=== PATIENT | female | born 1990 | race Caucasian/White ===

== ENCOUNTER 2017-07-27 15:51 | Emergency (ER) | payer OTHER ==
[~2017-07-27] VITALS: Ht 160 cm; Wt 55.3 kg
[2017-07-27 15:54] VITALS: TEMP 36.7; Ht 160 cm; Wt 55.3 kg
--- NOTE | 2017-07-27 16:14 | EMERGENCY ROOM VISIT NOTE ---
ED Visit Note First contact with patient: 15:57 CHIEF COMPLAINT: Right flank pain HISTORY OF PRESENT ILLNESS: This is a 26-year-old female emergency department with complaint of gradually worsening right low back and abdominal pain that began approximately 3 weeks ago. She states the pain was initially intermittent and a dull ache, now has become constant and getting persistently worse, increased with movement and walking, better with rest, radiates around to her right lower abdomen/groin, 10/10. She states the pain got significantly worse yesterday after a long ride in the car, and seems to be aggravated by prolonged periods of sitting. She has tried 800 mg of ibuprofen with no improvement in her pain. Using heating pad with some relief. She is from out of town, visiting on vacation. She denies any known injuries to her back . The pain was gradual in onset, is now constant and worse with movement. Denies any bowel or bladder difficulties. There has been no leg numbness or weakness. No recent direct trauma. No vomiting or abdominal pain. She denies any fever/ chills, headaches, neck pain, chest pain, shortness of breath, dizziness or syncope, nausea or vomiting, diarrhea, constipation, bloody or black stools, dysuria or urinary frequency, or abnormal vaginal bleeding. She denies any rashes. REVIEW OF SYSTEMS: A complete 10 point review of systems was reviewed with the patient with pertinent positives and negatives as per history of present illness. All else were negative. PMH: Patient reports history of right ovarian cyst several years ago that required hospitalization; no abdominal surgeries. SOCIAL HISTORY: Patient lives at home. She denies tobacco use, alcohol use, recreational drug use. PHYSICAL EXAM: Vital Signs: Reviewed Nurse's notes. CONSTITUTIONAL: Pleasant and cooperative. No acute distress, but appears in pain throughout exam. Mildly dehydrated. HEENT: Normocephalic, atraumatic. Pupils equal, round and reactive to light, EOMI. TMs normal. Pharynx normal. Tacky mucous members. NECK: Supple, full active range of motion without discomfort. RESPIRATORY: Clear to auscultation bilaterally with no wheezing, crackles, rhonchi or stridor. Equal expansion bilaterally. CARDIOVASCULAR: Regular rate and rhythm with no murmurs, rubs or gallops. Normal peripheral perfusion. No edema. GASTROINTESTINAL: Moderate tenderness of the right flank and right lower quadrant, positive guarding, no rebound tenderness. The abdomen is otherwise soft, nontender, nondistended. No palpable masses or HSM. Bowel sounds present in all quadrants. No CVA tenderness. MUSCULOSKELETAL: Full range of motion of all joints without discomfort. Positive straight leg raise on the right. INTEGUMENTARY: No rash or other significant dermatologic conditions noted. NEUROLOGIC: Alert and oriented X 4 with normal affect. Cranial nerves II-XII grossly intact. No focal neurologic deficits noted. +2 Achilles and patellar reflexes bilaterally. IMAGING: CT SCAN OF THE ABDOMEN AND PELVIS WITH IV CONTRAST CLINICAL HISTORY: Right flank and lower abdominal pain. COMPARISON STUDY: No priors. TECHNIQUE: Following the IV administration of 116 cc of Optiray 320, CT scan of the abdomen and pelvis is performed from the lung bases to the proximal femora. Images are reviewed in the axial, sagittal, and coronal planes. IV contrast was administered without complication. A dose lowering technique was utilized adhering to the principles of ALARA. CT DOSE: 257.53 mGy.cm FINDINGS: Lung bases: The heart is normal in size and without pericardial effusion. The lung bases are clear. Liver: The contrast-enhanced liver is normal in size, contour, and attenuation. There is no intrahepatic biliary ductal dilatation. The hepatic veins and portal veins are patent. Gallbladder: Unremarkable. Spleen: Normal in size and attenuation. Pancreas: Unremarkable. Adrenal glands: Unremarkable. Kidneys: The contrast enhanced kidneys are normal in size. There is a 4 mm obstructing calculus at the right vesicoureteral junction seen on axial image #341. This causes mild to moderate right hydroureteronephrosis. No additional renal calculi are clearly identified on this contrast-enhanced examination. The kidneys enhance symmetrically. There is delayed excretion from the right kidney as compared to the left. Abdominal vasculature: The abdominal aorta is normal in course and caliber. Bowel: The small bowel and colon are normal in course and caliber. The appendix is well-visualized and normal. Peritoneum: There is no intraperitoneal free air or abdominal ascites. Lymphadenopathy: None. Pelvic viscera: The bladder, uterus, and adnexa are normal as visualized noting bilateral ovarian follicles. Trace free fluid is seen in the cul-de-sac. Skeletal structures: No lytic or blastic lesions are seen. IMPRESSION: 1. There is a 4 mm obstructing calculus at the right vesicoureteral junction. This causes mild to moderate right hydroureteronephrosis. 2. No additional renal calculi are clearly identified on this contrast-enhanced examination. 3. Trace free fluid in the cul-de-sac is likely within physiologic limits. EMERGENCY DEPARTMENT COURSE: I examined the patient. Differential diagnosis includes lumbar sprain/strain, lumbar radiculopathy, muscle spasm, ureteral stone, UTI, pyelonephritis, ovarian cyst/torsion, appendicitis, mesenteric adenitis, gastroenteritis, among others. Patient is diffusely tender in the right lower abdomen, flank as well as the right lower back. Positive guarding but no McBurney's point tenderness, negative Rovsing. There is no midline tenderness of the spine. There is increased pain in the right back and abdomen with right straight leg raise as well as flexion and motion of the right hip joint. Orders were placed for labs, UA and urine , IV fluids for hydration, IV morphine for pain, CT abdomen/pelvis to evaluate for intra- abdominal pathology. Patient was discussed with Dr. Blanco, who agrees with my assessment and plan. Labs are reviewed, noting hematuria, otherwise unremarkable. CT abdomen/pelvis reveals a 4 millimeter obstructing distal stone on the right that correlate with patient's complaints. Patient reassessed multiple times throughout her ED stay, she reports her pain and nausea are greatly improved after medications. She was updated on all results and plan for discharge. She was provided with prescriptions for oxycodone, naproxen, Zofran, and Flomax. She was given a dose of Flomax here in the ED. She has tolerated oral fluids without difficulty. The patient was comfortable with discharge home. She was encouraged to call her PCP in [place] to discuss a referral to urologist, and was also provided with a local urologist here. She was sent home with a urine straining. She was encouraged to follow closely with urology and was given strict return precautions should her symptoms worsen , she verbalized understanding. Patient was discharged home with her family members in stable condition and ambulatory. Current/Historical Medications Scheduled Naproxen (Naprosyn), 500 MG PO BID Ondasetron Odt (Zofran Odt), 4 MG SL Q6H Tamsulosin Hcl (Flomax), 0.4 MG PO DAILY Trazodone Hcl (Trazodone), 50 MG PO HS Scheduled PRN Ibuprofen (Advil), 200-600 MG PO Q4H PRN for Pain Oxycodone Ir (Roxicodone Ir), 1-2 TAB PO Q6H PRN for Severe Pain Allergies Coded Allergies: No Known Allergies (Unverified , 07/27/17) Vital Signs Date Time Temp Pulse Resp B/P (MAP) Pulse Ox O2 Delivery O2 Flow Rate FiO2 07/27/17 19:05 92 16 106/60 96 07/27/17 18:42 92 16 106/60 97 Room Air 07/27/17 17:37 92 16 106/62 97 Room Air 07/27/17 15:54 36.7 104 16 150/92 97 Room Air Laboratory Results 07/27/17 16:48 Red Blood Count 3.99, Mean Corpuscular Volume 92.5, Mean Corpuscular Hemoglobin 30.6, Mean Corpuscular Hemoglobin Concent 33.1, Mean Platelet Volume 11.2, Neutrophils (%) (Auto) 62.0, Lymphocytes (%) (Auto) 26.3, Monocytes (%) (Auto) 9.7, Eosinophils (%) (Auto) 1.4, Basophils (%) (Auto) 0.3, Neutrophils # (Auto) 4.92, Lymphocytes # (Auto) 2.08, Monocytes # (Auto) 0.77, Eosinophils # (Auto) 0.11, Basophils # (Auto) 0.02 07/27/17 16:48 Test 07/27/17 16:40 07/27/17 16:48 Urine Color YELLOW Urine Appearance CLEAR (CLEAR) Urine pH 7.0 (4.5-7.5) Urine Specific [place] 1.015 (1.000-1.030) Urine Protein NEG (NEG) Urine Glucose (UA) NEG (NEG) Urine Ketones NEG (NEG) Urine Occult Blood 1+ (NEG) Urine Nitrite NEG (NEG) Urine Bilirubin NEG (NEG) Urine Urobilinogen NEG (NEG) Urine Leukocyte Esterase MODERATE (NEG) Urine WBC (Auto) 1-5 /hpf (0-5) Urine RBC (Auto) 5-10 /hpf (0-4) Urine Hyaline Casts (Auto) 1-5 /lpf (0-5) Urine Epithelial Cells (Auto) >30 /lpf (0-5) Urine Bacteria (Auto) NEG (NEG) Urine Test NEG (NEG) White Blood Count 7.92 K/uL (4.8-10.8) Red Blood Count 3.99 M/uL (4.2-5.4) Hemoglobin 12.2 g/dL (12.0-16.0) Hematocrit 36.9 % (37-47) Mean Corpuscular Volume 92.5 fL (80-100) Mean Corpuscular Hemoglobin 30.6 pg (25-34) Mean Corpuscular Hemoglobin Concent 33.1 g/dl (32-36) Platelet Count 189 K/uL (130-400) Mean Platelet Volume 11.2 fL (7.4-10.4) Neutrophils (%) (Auto) 62.0 % Lymphocytes (%) (Auto) 26.3 % Monocytes (%) (Auto) 9.7 % Eosinophils (%) (Auto) 1.4 % Basophils (%) (Auto) 0.3 % Neutrophils # (Auto) 4.92 K/uL (1.4-6.5) Lymphocytes # (Auto) 2.08 K/uL (1.2-3.4) Monocytes # (Auto) 0.77 K/uL (0.11-0.59) Eosinophils # (Auto) 0.11 K/uL (0-0.5) Basophils # (Auto) 0.02 K/uL (0-0.2) RDW Standard Deviation 45.7 fL (36.4-46.3) RDW Coefficient of Variation 13.5 % (11.5-14.5) Immature Granulocyte % (Auto) 0.3 % Immature Granulocyte # (Auto) 0.02 K/uL (0.00-0.02) Anion Gap 5.0 mmol/L (3-11) Est Creatinine Clear Calc Drug Dose 112.7 ml/min Estimated GFR () 143.2 Estimated GFR (Non- 123.6 BUN/Creatinine Ratio 18.4 (10-20) Calcium Level 8.7 mg/dl (8.5-10.1) Total Bilirubin 0.2 mg/dl (0.2-1) Direct Bilirubin < 0.1 mg/dl (0-0.2) Aspartate Amino Transf (AST/SGOT) 13 U/L (15-37) Alanine Aminotransferase (ALT/SGPT) 19 U/L (12-78) Alkaline Phosphatase 70 U/L (45-117) Total Protein 7.4 gm/dl (6.4-8.2) Albumin 4.1 gm/dl (3.4-5.0) No leukocytosis, no anemia, no significant electively at abnormalities, normal renal function, normal liver enzymes, UA shows hematuria and leukocyte esterase , negative for infection, urine negative Medications Administered Medications (Trade) Dose Ordered Sig/Agustin Route Start Time Stop Time Status Last Admin Dose Admin Sodium Chloride 1,000 ml @ 999 mls/hr Q1H1M STAT IV 07/27/17 16:26 07/27/17 17:26 DC 07/27/17 16:50 999 MLS/HR Morphine Sulfate (MoRPHine SULFATE INJ) 4 mg NOW STAT IV 07/27/17 16:26 07/27/17 16:30 DC 07/27/17 16:50 4 MG Acetaminophen 100 ml @ 400 mls/hr NOW STAT IV 07/27/17 17:26 07/27/17 17:40 DC 07/27/17 17:36 400 MLS/HR Tamsulosin HCl (Flomax Cap) 0.4 mg NOW ONCE PO 07/27/17 18:15 07/27/17 18:16 DC 07/27/17 18:22 0.4 MG Ketorolac Tromethamine (Toradol Inj) 15 mg NOW STAT IV 07/27/17 18:14 07/27/17 18:16 DC 07/27/17 18:22 15 MG Departure Information Impression Primary Impression: Right distal ureteral calculus Dispostion Home / Self-Care Condition GOOD Prescriptions Ondasetron Odt (ZOFRAN ODT) 4 Mg Tab 4 MG SL Q6H for Nausea, #6 TAB Prov: Kym Thacker CRNP 07/27/17 Tamsulosin Hcl (FLOMAX) 0.4 Mg Cap 0.4 MG PO DAILY for 7 Days, #7 CAP Prov: Kym Thacker CRNP 07/27/17 Naproxen (Naprosyn) 500 Mg Tab 500 MG PO BID for 10 Days, #20 TAB Prov: Kym Thacker CRNP 07/27/17 Oxycodone Ir (Roxicodone Ir) 5 Mg Tab 1-2 TAB PO Q6H Y for Severe Pain, #20 TAB Prov: Kym Thacker CRNP 07/27/17 Referrals No Doctor, Assigned (PCP) Adalberto Vincent M.D. Patient Instructions ED Stone Renal W Colic, ED Strainer Urine, My [facility] Additional Instructions You have been treated in the Emergency Department today for a Kidney Stone ( Nephrolithiasis). You have received pain medicine in the emergency department which impairs your ability to operate a vehicle. It is illegal for you to drive after receiving these medicines. You have been prescribed naproxen 500 mg, take one tablet every 12 hours to help treat your pain. Do not take other NSAIDs while you're taking this medication. You have been prescribed oxycodone to be used for severe pain control. This is a narcotic medication. You cannot drive or consume alcohol while on this medicine. This medicine should only be used for pain that cannot be controlled with [id number] pain medicines. You have been prescribed Zofran to be used for any nausea or vomiting. Take as prescribed. You have been prescribed Flomax 0.4 mg to be taken ONCE daily. This medicine has been prescribed as it can help relax the smooth muscles of the urinary tract increasing transit time of the kidney stone. For additional pain control, you can use the following [id number] medicines (if >12 yo): - Regular strength (325mg/tab) Tylenol (acetaminophen) 2 tabs every 4-6 hours as needed. Do not exceed 10 tablets in a 24 hour period. Avoid taking more than 3000 mg day. This includes any other sources of acetaminophen you may take on a regular basis. You have been provided a strainer and specimen collection cup. You should strain your urine to collect any passed stones. Your stones can be placed into the specimen cup and taken to your Urologist for further evaluation. You have been provided the contact information for the on-call Urologist. You should contact the Urologist's office tomorrow to establish a follow-up appointment from today's Emergency Department visit. Return to the Emergency Department for severe worsening of your pain, fevers > 101.5, persistent vomiting and unable to keep down fluids, large amounts of blood in your urine, inability to urinate for greater than 8 hours, or any other concerns.
[2017-07-27] MEDS ORDERED: MoRPHine SULFATE 4 MG/ML 1 ML CARP\\VIAL IV STA (16:26)
[2017-07-27] MEDS ORDERED: SODIUM CHLORIDE 0.9% 1000ML 1,000 ML IV STA (16:26)
[2017-07-27] MEDS ORDERED: OPTIRAY 320 IV PRN (16:45)
[2017-07-27] MEDS ORDERED: IBUP-1050 PO (16:54)
[2017-07-27] MEDS ORDERED: TRAZ50TA35 PO (16:54)
[2017-07-27 16:56] LABS: BASO % 0.3 %; BASO ABS # 0.02 K/uL (0-0.2); EOS % 1.4 %; EOS ABS # 0.11 K/uL (0-0.5); HEMATOCRIT 36.9 % (37-47); HEMOGLOBIN 12.2 g/dL (12.0-16.0); IG# 0.02 K/uL (0.00-0.02); LYMPH % 26.3 %; LYMPH ABS # 2.08 K/uL (1.2-3.4); MEAN CELL VOLUME 92.5 fL (80-100); MEAN CORPUSCULAR HEMOGLOBIN 30.6 pg (25-34); MEAN CORPUSCULAR HGB CONC 33.1 g/dl (32-36); MEAN PLATELET VOLUME 11.2 fL (7.4-10.4); MONO % 9.7 %; MONO ABS # 0.77 K/uL (0.11-0.59); NEUT ABS # 4.92 K/uL (1.4-6.5); PLATELET COUNT 189 K/uL (130-400); RED CELL DISTRIBUTION WIDTH CV 13.5 % (11.5-14.5); RED CELL DISTRIBUTION WIDTH SD 45.7 fL (36.4-46.3); WHITE BLOOD COUNT 7.92 K/uL (4.8-10.8)
[2017-07-27] MEDS ORDERED: ACETAMINOPHEN IV 100 ML IV STA (17:26)
[2017-07-27 17:33] LABS: ALBUMIN 4.1 gm/dl (3.4-5.0); ALT/SGPT 19 U/L (12-78); AST/SGOT 13 U/L (15-37); BLOOD UREA NITROGEN 11 mg/dl (7-18); CALCIUM 8.7 mg/dl (8.5-10.1); CARBON DIOXIDE 27 mmol/L (21-32); CREATININE 0.62 mg/dl (0.60-1.20); GLUCOSE 103 mg/dl (70-99); POTASSIUM 3.5 mmol/L (3.5-5.1); SODIUM 138 mmol/L (136-145)
[2017-07-27 17:35] LABS: ALKALINE PHOSPHATASE 70 U/L (45-117); TOTAL PROTEIN 7.4 gm/dl (6.4-8.2)
--- NOTE | 2017-07-27 18:03 | DIAGNOSTIC IMAGING REPORT ---
CT SCAN OF THE ABDOMEN AND PELVIS WITH IV CONTRAST CLINICAL HISTORY: Right flank and lower abdominal pain. COMPARISON STUDY: No priors. TECHNIQUE: Following the IV administration of 116 cc of Optiray 320, CT scan of the abdomen and pelvis is performed from the lung bases to the proximal femora. Images are reviewed in the axial, sagittal, and coronal planes. IV contrast was administered without complication. A dose lowering technique was utilized adhering to the principles of ALARA. CT DOSE: 257.53 mGy.cm FINDINGS: Lung bases: The heart is normal in size and without pericardial effusion. The lung bases are clear. Liver: The contrast-enhanced liver is normal in size, contour, and attenuation. There is no intrahepatic biliary ductal dilatation. The hepatic veins and portal veins are patent. Gallbladder: Unremarkable. Spleen: Normal in size and attenuation. Pancreas: Unremarkable. Adrenal glands: Unremarkable. Kidneys: The contrast enhanced kidneys are normal in size. There is a 4 mm obstructing calculus at the right vesicoureteral junction seen on axial image #341. This causes mild to moderate right hydroureteronephrosis. No additional renal calculi are clearly identified on this contrast-enhanced examination. The kidneys enhance symmetrically. There is delayed excretion from the right kidney as compared to the left. Abdominal vasculature: The abdominal aorta is normal in course and caliber. Bowel: The small bowel and colon are normal in course and caliber. The appendix is well-visualized and normal. Peritoneum: There is no intraperitoneal free air or abdominal ascites. Lymphadenopathy: None. Pelvic viscera: The bladder, uterus, and adnexa are normal as visualized noting bilateral ovarian follicles. Trace free fluid is seen in the cul-de-sac. Skeletal structures: No lytic or blastic lesions are seen. IMPRESSION: 1. There is a 4 mm obstructing calculus at the right vesicoureteral junction. This causes mild to moderate right hydroureteronephrosis. 2. No additional renal calculi are clearly identified on this contrast-enhanced examination. 3. Trace free fluid in the cul-de-sac is likely within physiologic limits. Electronically signed by: Luis Alberto Brand M.D. 07/27/2017 6:02 PM Dictated Date/Time: 07/27/2017 5:56 PM
[2017-07-27] MEDS ORDERED: KETOROLAC TROMETHAMINE 30 MG/ML VIAL IV STA (18:14)
[2017-07-27] MEDS ORDERED: TAMSULOSIN HCL 0.4 MG CAP PO ONE (18:15)
[2017-07-27] MEDS ORDERED: OXYC-90 PO (18:24)
[2017-07-27] MEDS ORDERED: NAPR-22 PO (18:24)
[2017-07-27] MEDS ORDERED: TAMS0.4C38 PO (18:24)
[2017-07-27] MEDS ORDERED: ONDA4TAB10 SL (18:24)
[2017-07-27 19:05] VITALS: BP 106/60; PULSE 92; O2SAT 96
[2017-07-29] MEDS ORDERED: OXYC-90 PO (13:11)
[2017-07-30] MEDS ORDERED: MRLP17X PO (09:57)
== END 2017-07-27 19:07 | disposition home or self-care (01) ==
LOC: C.EDB 15:53 → C.EDD 19:07
DX: N20.1 Calculus of ureter (principal)

== ENCOUNTER 2017-07-28 10:34 | Observation (INO) | payer OTHER ==
[~2017-07-28] VITALS: Ht 160 cm; Wt 55.7 kg
[~2017-07-28 10:34] MED LIST: IBUP-1050 PO; NAPR-1169 PO; ONDA4TAB10 SL; OXYC1TAB3 PO; TAMS0.4C38 PO; TRAZ50TA35 PO
[2017-07-28] MEDS ORDERED: ONDANSETRON INJ 2 MG/ML 2 ML VIAL IV STA (10:49)
[2017-07-28] MEDS ORDERED: SODIUM CHLORIDE 0.9% 1000ML 1,000 ML IV STA (10:49)
--- NOTE | 2017-07-28 10:53 | EMERGENCY ROOM VISIT NOTE ---
History Report prepared by Katherine: Hina Henderson Under the Supervision of: Rodolfo CobosO. First contact with patient: 10:46 Chief Complaint: KIDNEY STONE Stated Complaint: KIDNEY STONE History of Present Illness The patient is a 26 year old female who presents to the Emergency Room with complaints of worsening lower right back pain that began one month ago. The patient states that she seen in the Emergency Department yesterday, noting she was diagnosed with a 4ml kidney stone. She notes she has been nausea, vomiting, dizziness, and has some hematuria. The patient denies any vaginal bleeding. She denies a history of kidney stones. Source of History: patient Onset: one month ago Position: back (lower) Quality: other (back pain) Timing: worsening Associated Symptoms: + nausea, + vomiting Review of Systems See HPI for pertinent positives & negatives. A total of 10 systems reviewed and were otherwise negative. Past Medical & Surgical Medical Problems: (1) Anxiety (2) Hydronephrosis due to obstruction of ureter Family History Patient reports no known family medical history. No pertinent family history. Social History Smoking Status: Never Smoker Smokeless Tobacco Use: No Alcohol Use: none Drug Use: none Marital Status: single Housing Status: lives with family Occupation Status: student Current/Historical Medications Scheduled Naproxen (Naprosyn), 500 MG PO BID Ondasetron Odt (Zofran Odt), 4 MG SL Q6H Tamsulosin Hcl (Flomax), 0.4 MG PO DAILY Trazodone Hcl (Trazodone), 50 MG PO HS Scheduled PRN Ibuprofen (Advil), 200-600 MG PO Q4H PRN for Pain Oxycodone Ir (Roxicodone Ir), 1-2 TAB PO Q6H PRN for Severe Pain Allergies Coded Allergies: No Known Allergies (Unverified , 07/28/17) Physical Exam Vital Signs Date Time Temp Pulse Resp B/P (MAP) Pulse Ox O2 Delivery O2 Flow Rate FiO2 07/28/17 12:31 104 07/28/17 12:25 37.0 92 18 119/73 98 Room Air 07/28/17 10:43 36.8 103 18 128/78 97 Room Air Physical Exam GENERAL: Patient is awake, alert, and in no acute distress. Patient is very anxious, uncomfortable, and in significant pain. EYES: The conjunctivae are clear. The pupils are round and reactive. EARS, NOSE, MOUTH AND THROAT: The nose is without any evidence of any deformity. Mucous membranes are moist tongue is midline NECK: The neck is nontender and supple. RESPIRATORY: Normal respiratory effort is noted there is no evidence of wheezing rhonchi or rales CARDIOVASCULAR: Tachycardic rate and regular rhythm noted there no murmurs rubs or gallops normal S1 normal S2 GASTROINTESTINAL: Soft with diffused tenderness to palpitations. No guarding or rigidity. Bowel sounds are present in all quadrants. Abdomen is nontender PELVIS: The Pelvis is stable. No tenderness to palpation is noted. BACK: Right CVA tenderness to percussion. No midline tenderness or or step-off noted range of motion in flexion extension as well as rotation no signs of muscle spasm noted MUSCULOSKELETAL/EXTREMITIES: There is no evidence of gross deformity full range of motion is noted in the hips and shoulders SKIN: There is no obvious evidence of any rash. There are no petechiae, pallor or cyanosis noted. NEUROLOGIC: Patient is awake alert and oriented x3 Medical Decision & Procedures Laboratory Results 07/28/17 11:00 Red Blood Count 3.97, Mean Corpuscular Volume 92.4, Mean Corpuscular Hemoglobin 30.2, Mean Corpuscular Hemoglobin Concent 32.7, Mean Platelet Volume 10.8, Neutrophils (%) (Auto) 88.5, Lymphocytes (%) (Auto) 6.2, Monocytes (%) (Auto) 4.8, Eosinophils (%) (Auto) 0.0, Basophils (%) (Auto) 0.1, Neutrophils # (Auto) 12.50, Lymphocytes # (Auto) 0.87, Monocytes # (Auto) 0.68, Eosinophils # (Auto) 0.00, Basophils # (Auto) 0.02 07/28/17 11:00 Test 07/28/17 11:00 White Blood Count 14.12 K/uL (4.8-10.8) Red Blood Count 3.97 M/uL (4.2-5.4) Hemoglobin 12.0 g/dL (12.0-16.0) Hematocrit 36.7 % (37-47) Mean Corpuscular Volume 92.4 fL (80-100) Mean Corpuscular Hemoglobin 30.2 pg (25-34) Mean Corpuscular Hemoglobin Concent 32.7 g/dl (32-36) Platelet Count 186 K/uL (130-400) Mean Platelet Volume 10.8 fL (7.4-10.4) Neutrophils (%) (Auto) 88.5 % Lymphocytes (%) (Auto) 6.2 % Monocytes (%) (Auto) 4.8 % Eosinophils (%) (Auto) 0.0 % Basophils (%) (Auto) 0.1 % Neutrophils # (Auto) 12.50 K/uL (1.4-6.5) Lymphocytes # (Auto) 0.87 K/uL (1.2-3.4) Monocytes # (Auto) 0.68 K/uL (0.11-0.59) Eosinophils # (Auto) 0.00 K/uL (0-0.5) Basophils # (Auto) 0.02 K/uL (0-0.2) RDW Standard Deviation 44.8 fL (36.4-46.3) RDW Coefficient of Variation 13.3 % (11.5-14.5) Immature Granulocyte % (Auto) 0.4 % Immature Granulocyte # (Auto) 0.05 K/uL (0.00-0.02) Urine Color YELLOW Urine Appearance CLEAR (CLEAR) Urine pH 6.5 (4.5-7.5) Urine Specific [place] 1.024 (1.000-1.030) Urine Protein NEG (NEG) Urine Glucose (UA) NEG (NEG) Urine Ketones NEG (NEG) Urine Occult Blood TRACE (NEG) Urine Nitrite NEG (NEG) Urine Bilirubin NEG (NEG) Urine Urobilinogen NEG (NEG) Urine Leukocyte Esterase SMALL (NEG) Urine WBC (Auto) 5-10 /hpf (0-5) Urine RBC (Auto) 5-10 /hpf (0-4) Urine Hyaline Casts (Auto) 1-5 /lpf (0-5) Urine Epithelial Cells (Auto) >30 /lpf (0-5) Urine Bacteria (Auto) 1+ (NEG) Urine Renal Epithelial Cells /lpf (0-5) Anion Gap 8.0 mmol/L (3-11) Est Creatinine Clear Calc Drug Dose 76.8 ml/min Estimated GFR () 100.2 Estimated GFR (Non- 86.5 BUN/Creatinine Ratio 12.6 (10-20) Calcium Level 9.2 mg/dl (8.5-10.1) Total Bilirubin 0.4 mg/dl (0.2-1) Direct Bilirubin < 0.1 mg/dl (0-0.2) Aspartate Amino Transf (AST/SGOT) 15 U/L (15-37) Alanine Aminotransferase (ALT/SGPT) 17 U/L (12-78) Alkaline Phosphatase 52 U/L (45-117) Total Protein 7.7 gm/dl (6.4-8.2) Albumin 4.4 gm/dl (3.4-5.0) Lipase 110 U/L (73-393) Human Chorionic Gonadotropin, Qual NEG (NEG) Laboratory results per my review. Medications Administered Medications (Trade) Dose Ordered Sig/Agustin Route Start Time Stop Time Status Last Admin Dose Admin Sodium Chloride 1,000 ml @ 999 mls/hr Q1H1M STAT IV 07/28/17 10:49 07/28/17 11:49 DC 07/28/17 11:01 999 MLS/HR Ondansetron HCl (Zofran Inj) 4 mg NOW STAT IV 07/28/17 10:49 07/28/17 10:52 DC 07/28/17 11:00 4 MG Morphine Sulfate (MoRPHine SULFATE INJ) 4 mg Q15M PRN IV 07/28/17 11:00 07/28/17 14:40 DC 07/28/17 12:37 4 MG ED Course 1047: The patient was evaluated in room C4. A complete history and physical examination were performed. 1049: Ordered Sodium Chloride 1000ml @ 999mls/hr IV and Zofran Inj 4mg IV. 1100: Ordered Morphine sulfate 4mg IV. 1142: I reevaluated the patient, who was resting. The patient states she is not feeling much better. I discussed test findings with her. 1256: I discussed the patient's case with JERAMIE Escalera. The patient will be evaluated for further management. Medical Decision Prior records/ancillary studies reviewed. Triage Nursing notes reviewed. Additional history obtained from previous visit. The patient's history was concerning for back pain. Differential diagnosis: Etiologies such as musculoskeletal, disc herniation, fracture, aortic disease, metastatic disease, cord compression, discitis, infection, renal colic, gastrointestinal, acute exacerbation of chronic back pain, sciatica, cauda equina, as well as others were entertained. The patient is a 26-year-old female who presented to the emergency department for evaluation of right flank pain. The patient was seen in our facility recently diagnosed with a distal ureteral calculus. Patient return to the emergency department because of severe pain. From the patient's history and physical exam I would surmise that she's been in significant pain ever since she left our department. The patient was further treated with IV fluids IV pain medicine and IV antiemetics. On subsequent reevaluation she was only minimally improved. I discussed her case with the on-call [facility] hospitalist group. They've agreed to evaluate the patient in the emergency department for further management and disposition. The patient was feeling somewhat improved on final evaluation. I'm concerned because she has no local follow-up and may need to see a urologist as an inpatient to further evaluate any other management strategies. Medication Reconcilliation Current Medication List: was personally reviewed by me Blood Pressure Screening Patient's blood pressure: Normal blood pressure Consults Time Called: 1256 Consulting Physician: JERAMIE Escalera Returned Call: 1256 I discussed the patient's case with JERAMIE Escalera. The patient will be evaluated for further management. Impression Primary Impression: Renal colic Additional Impression: Right flank pain Scribe Attestation The scribe's documentation has been prepared under my direction and personally reviewed by me in its entirety. I confirm that the note above accurately reflects all work, treatment, procedures, and medical decision making performed by me. Departure Information Dispostion Being Evaluated By Hospitalist Forms HOME CARE DOCUMENTATION FORM, IMPORTANT VISIT INFORMATION Patient Instructions My [facility] Health Problem Qualifiers
[2017-07-28] MEDS: MoRPHine SULFATE 4 MG/ML 1 ML CARP\\VIAL IV PRN ×2 (11:01→12:37)
[2017-07-28 11:07] LABS: BASO % 0.1 %; BASO ABS # 0.02 K/uL (0-0.2); HEMATOCRIT 36.7 % (37-47); IG# 0.05 K/uL (0.00-0.02); LYMPH % 6.2 %; LYMPH ABS # 0.87 K/uL (1.2-3.4); MEAN CELL VOLUME 92.4 fL (80-100); MEAN CORPUSCULAR HEMOGLOBIN 30.2 pg (25-34); MEAN CORPUSCULAR HGB CONC 32.7 g/dl (32-36); MEAN PLATELET VOLUME 10.8 fL (7.4-10.4); MONO % 4.8 %; MONO ABS # 0.68 K/uL (0.11-0.59); NEUT % 88.5 %; PLATELET COUNT 186 K/uL (130-400); RED CELL DISTRIBUTION WIDTH CV 13.3 % (11.5-14.5); RED CELL DISTRIBUTION WIDTH SD 44.8 fL (36.4-46.3); WHITE BLOOD COUNT 14.12 K/uL (4.8-10.8)
[2017-07-28 11:26] LABS: ALBUMIN 4.4 gm/dl (3.4-5.0); BLOOD UREA NITROGEN 11 mg/dl (7-18); CALCIUM 9.2 mg/dl (8.5-10.1); CARBON DIOXIDE 24 mmol/L (21-32); CREATININE 0.91 mg/dl (0.60-1.20); GLUCOSE 124 mg/dl (70-99); LIPASE 110 U/L (73-393); POTASSIUM 4.1 mmol/L (3.5-5.1); SODIUM 133 mmol/L (136-145)
[2017-07-28 11:29] LABS: ALKALINE PHOSPHATASE 52 U/L (45-117); ALT/SGPT 17 U/L (12-78); AST/SGOT 15 U/L (15-37); TOTAL PROTEIN 7.7 gm/dl (6.4-8.2)
[2017-07-28] MEDS ORDERED: POLYETHYLENE (MIRALAX) 17 GM PACK PO PRN (13:15)
[2017-07-28] MEDS ORDERED: MAGNESIUM HYDROXIDE SUSP 30 ML UDC PO PRN (13:15)
[2017-07-28] MEDS ORDERED: ALUMINUM/MAGNESIUM/SIMETH (MAALOX MAX) 30 ML UDC PO PRN (13:15)
[2017-07-28] MEDS ORDERED: ACETAMINOPHEN 325 MG TAB PO PRN (13:15)
[2017-07-28] MEDS: ONDANSETRON INJ 2 MG/ML 2 ML VIAL IV PRN (13:43)
[2017-07-28] MEDS: HYDROmorphone INJ 0.5 MG/0.5 ML SYR IV PRN ×3 (13:43→21:33)
--- NOTE | 2017-07-28 13:44 | History and Physical ---
History & Physical Date & Time of Service: Jul 28, 2017 at 13:32 Chief Complaint: Kidney Stone Primary Care Physician: No Doctor, Assigned History of Present Illness Source: patient 26 y/o F without significant medical history. Presented to the ER one day prior with R flank pain radiating into the groin. A CT pelvis revealed a 4mm calculus at the ureterovesical junction with moderate hydronephrosis. She returns due to worsening pain. The pt denies fevers or rigors. She is nauseous and had one episode of vomiting the prior evening. She has avoided PO intake today. Past Medical/Surgical History No active medical issues - has had eustachian tube surgery Family History Patient reports no known family medical history. Mother with history of multiple renal calculi that tend to pass spontaneously. Social History Visiting [place] - employed as a [employer] - does not smoke or drink Smoking Status: Never Smoker Smokeless Tobacco Use: No Drug Use: none Marital Status: single Occupational Status: student Allergies Coded Allergies: No Known Allergies (Unverified , 07/28/17) Home Medications Scheduled Naproxen (Naprosyn), 500 MG PO BID Ondasetron Odt (Zofran Odt), 4 MG SL Q6H Tamsulosin Hcl (Flomax), 0.4 MG PO DAILY Trazodone Hcl (Trazodone), 50 MG PO HS Scheduled PRN Ibuprofen (Advil), 200-600 MG PO Q4H PRN for Pain Oxycodone Ir (Roxicodone Ir), 1-2 TAB PO Q6H PRN for Severe Pain Review of Systems Constitutional: No fever, No chills, No sweats Eyes: No worsening of vision ENT: No hearing loss, No nasal symptoms Respiratory: No cough, No sputum, No wheezing Cardiovascular: No chest pain, No orthopnea, No PND Abdomen: + pain, + nausea, + vomiting Musculoskeletal: + problem reported (R flank pain), No joint pain Genitourinary - Female: No dysuria, No urinary frequency Neurologic: No memory loss, No paralysis, No weakness Psychiatric: No depression symptoms Endocrine: No fatigue Hematologic / Lymphatic: No abnormal bleeding/bruising Integumentary: No rash Physical Exam Vital Signs Date Time Temp Pulse Resp B/P (MAP) Pulse Ox O2 Delivery O2 Flow Rate FiO2 07/28/17 12:31 104 07/28/17 12:25 37.0 92 18 119/73 98 Room Air 07/28/17 10:43 36.8 103 18 128/78 97 Room Air General Appearance: WD/WN, no apparent distress Head: normocephalic ENT: normal ENT inspection, pharynx normal Neck: supple, no JVD Respiratory/Chest: chest non-tender, lungs clear, normal breath sounds Cardiovascular: regular rate, rhythm, no edema, no gallop Abdomen/GI: normal bowel sounds, soft, + pertinent finding (RLQ tenderness) Back: normal inspection, + right CVA tenderness Extremities/Musculoskelatal: normal inspection, no calf tenderness, normal capillary refill Neurologic/Psych: insurance professional II-XII nml as tested, no motor/sensory deficits, alert, oriented x 3 Skin: normal color, warm/dry Diagnostics Laboratory Results Results Past 24 Hours Test 07/28/17 11:00 Range/Units White Blood Count 14.12 4.8-10.8 K/uL Red Blood Count 3.97 4.2-5.4 M/uL Hemoglobin 12.0 12.0-16.0 g/dL Hematocrit 36.7 37-47 % Mean Corpuscular Volume 92.4 80-100 fL Mean Corpuscular Hemoglobin 30.2 25-34 pg Mean Corpuscular Hemoglobin Concent 32.7 32-36 g/dl Platelet Count 186 130-400 K/uL Mean Platelet Volume 10.8 7.4-10.4 fL Neutrophils (%) (Auto) 88.5 % Lymphocytes (%) (Auto) 6.2 % Monocytes (%) (Auto) 4.8 % Eosinophils (%) (Auto) 0.0 % Basophils (%) (Auto) 0.1 % Neutrophils # (Auto) 12.50 1.4-6.5 K/uL Lymphocytes # (Auto) 0.87 1.2-3.4 K/uL Monocytes # (Auto) 0.68 0.11-0.59 K/uL Eosinophils # (Auto) 0.00 0-0.5 K/uL Basophils # (Auto) 0.02 0-0.2 K/uL RDW Standard Deviation 44.8 36.4-46.3 fL RDW Coefficient of Variation 13.3 11.5-14.5 % Immature Granulocyte % (Auto) 0.4 % Immature Granulocyte # (Auto) 0.05 0.00-0.02 K/uL Urine Color YELLOW Urine Appearance CLEAR CLEAR Urine pH 6.5 4.5-7.5 Urine Specific [place] 1.024 1.000-1.030 Urine Protein NEG NEG Urine Glucose (UA) NEG NEG Urine Ketones NEG NEG Urine Occult Blood TRACE NEG Urine Nitrite NEG NEG Urine Bilirubin NEG NEG Urine Urobilinogen NEG NEG Urine Leukocyte Esterase SMALL NEG Urine WBC (Auto) 5-10 0-5 /hpf Urine RBC (Auto) 5-10 0-4 /hpf Urine Hyaline Casts (Auto) 1-5 0-5 /lpf Urine Epithelial Cells (Auto) >30 0-5 /lpf Urine Bacteria (Auto) 1+ NEG Urine Renal Epithelial Cells 0-5 /lpf Sodium Level 133 136-145 mmol/L Potassium Level 4.1 3.5-5.1 mmol/L Chloride Level 100 98-107 mmol/L Carbon Dioxide Level 24 21-32 mmol/L Anion Gap 8.0 3-11 mmol/L Blood Urea Nitrogen 11 7-18 mg/dl Creatinine 0.91 0.60-1.20 mg/dl Est Creatinine Clear Calc Drug Dose 76.8 ml/min Estimated GFR () 100.2 Estimated GFR (Non- 86.5 BUN/Creatinine Ratio 12.6 10-20 Random Glucose 124 70-99 mg/dl Calcium Level 9.2 8.5-10.1 mg/dl Total Bilirubin 0.4 0.2-1 mg/dl Direct Bilirubin < 0.1 0-0.2 mg/dl Aspartate Amino Transf (AST/SGOT) 15 15-37 U/L Alanine Aminotransferase (ALT/SGPT) 17 12-78 U/L Alkaline Phosphatase 52 45-117 U/L Total Protein 7.7 6.4-8.2 gm/dl Albumin 4.4 3.4-5.0 gm/dl Lipase 110 73-393 U/L Human Chorionic Gonadotropin, Qual NEG NEG Diagnostic Radiology CT pelvis 07/27: 1. There is a 4 mm obstructing calculus at the right vesicoureteral junction. This causes mild to moderate right hydroureteronephrosis. 2. No additional renal calculi are clearly identified on this contrast-enhanced examination. 3. Trace free fluid in the cul-de-sac is likely within physiologic limits. Impression Assessment and Plan 26 y/o F without significant medical history. Presented to the ER one day prior with R flank pain radiating into the groin. A CT pelvis revealed a 4mm calculus at the ureterovesical junction with moderate hydronephrosis. She returns due to worsening pain. The pt denies fevers or rigors. She is nauseous and had one episode of vomiting the prior evening. She has avoided PO intake today. The pt will be evaluated by urology. She is placed on IVF, Flomax, antiemetics and as needed narcotics. We will keep her NPO after midnight as she may need intervention if there is no spontaneous passage. Full code - SCDs Total time for this admit including review of labs, meds, imaging - discussion with pt and ER attending - 31 min Resuscitation Status FULL RESUSCITATION VTE Prophylaxis VTE Risk Assessment Done? Y/N: Yes Risk Level: Very Low Given or contraindicated: SCD's
--- NOTE | 2017-07-28 13:45 | DIAGNOSTIC IMAGING REPORT ---
KUB CLINICAL HISTORY: Ureteral stone. COMPARISON STUDY: CT of the abdomen and pelvis July 27, 2017. FINDINGS: A 2.4 mm distal right ureteral calculus is unchanged in position since CT of July 27, 2017. There is persistent contrast within a mildly dilated right collecting system. No additional urinary calculi are present. A moderate amount stool within the colon is noted without evidence for a bowel obstruction. IMPRESSION: 1. No change in position of a 2.4 mm distal right ureteral calculus since CT of July 27, 2017. 2. Mild right hydronephrosis. Electronically signed by: Jose Angel Celis M.D. 07/28/2017 1:43 PM Dictated Date/Time: 07/28/2017 1:39 PM
[2017-07-28] MEDS ORDERED: IV FLUIDS COMPLETED PRN (14:15)
[2017-07-28 14:26] VITALS: BP 125/70; PULSE 106; TEMP 36.9; O2SAT 100
[2017-07-28 14:27] VITALS: BP 125/70; PULSE 92; TEMP 36.9; O2SAT 100; Ht 160 cm; Wt 55.7 kg
[2017-07-28] MEDS: D5W AND NSS 1,000 ML IV SCH ×2 (15:01→23:42)
[2017-07-28 15:19] VITALS: BP 103/52; PULSE 85; TEMP 36.9; O2SAT 96
--- NOTE | 2017-07-28 16:20 | Urology Consultation ---
History General Date of Service: Jul 28, 2017. Chief Complaint: Intractable colic. Primary Care Physician: No Doctor, Assigned Pt seen a urologist before?: Yes If yes, why?: Childhood UTIs History of Present Illness 26 yo female here for acute onset of intractable RLQ pain, nausea, emesis and irritative symptoms. She presented to the ER yesterday and returned today due to a lack of symptomatic relief. Her notes and imaging studies are reviewed - this shows a distal R ureteral stone, 3-4 mm with mild to mod hydro. KUB today redemonstrates her R distal stone - likely some retained contrast in her R kidney is also notes. She notes her pain persists, more controlled on parenteral medication. She is here locally on vacation - her family is sleeping in the hotel after having been up all night with her, not available by phone today. This is her first stone episode, although she underwent an unspecified evaluation as a child for a history of recurrent UTIs. She has passed no stone material since admission. consultation is requested to assist with her care. Imaging Imaging: CT Laboratory Last 24 Hours Test 07/28/17 11:00 White Blood Count 14.12 K/uL Red Blood Count 3.97 M/uL Hemoglobin 12.0 g/dL Hematocrit 36.7 % Mean Corpuscular Volume 92.4 fL Mean Corpuscular Hemoglobin 30.2 pg Mean Corpuscular Hemoglobin Concent 32.7 g/dl Platelet Count 186 K/uL Mean Platelet Volume 10.8 fL Neutrophils (%) (Auto) 88.5 % Lymphocytes (%) (Auto) 6.2 % Monocytes (%) (Auto) 4.8 % Eosinophils (%) (Auto) 0.0 % Basophils (%) (Auto) 0.1 % Neutrophils # (Auto) 12.50 K/uL Lymphocytes # (Auto) 0.87 K/uL Monocytes # (Auto) 0.68 K/uL Eosinophils # (Auto) 0.00 K/uL Basophils # (Auto) 0.02 K/uL RDW Standard Deviation 44.8 fL RDW Coefficient of Variation 13.3 % Immature Granulocyte % (Auto) 0.4 % Immature Granulocyte # (Auto) 0.05 K/uL Urine Color YELLOW Urine Appearance CLEAR Urine pH 6.5 Urine Specific [place] 1.024 Urine Protein NEG Urine Glucose (UA) NEG Urine Ketones NEG Urine Occult Blood TRACE Urine Nitrite NEG Urine Bilirubin NEG Urine Urobilinogen NEG Urine Leukocyte Esterase SMALL Urine WBC (Auto) 5-10 /hpf Urine RBC (Auto) 5-10 /hpf Urine Hyaline Casts (Auto) 1-5 /lpf Urine Epithelial Cells (Auto) >30 /lpf Urine Bacteria (Auto) 1+ Urine Renal Epithelial Cells /lpf Sodium Level 133 mmol/L Potassium Level 4.1 mmol/L Chloride Level 100 mmol/L Carbon Dioxide Level 24 mmol/L Anion Gap 8.0 mmol/L Blood Urea Nitrogen 11 mg/dl Creatinine 0.91 mg/dl Est Creatinine Clear Calc Drug Dose 76.8 ml/min Estimated GFR () 100.2 Estimated GFR (Non- 86.5 BUN/Creatinine Ratio 12.6 Random Glucose 124 mg/dl Calcium Level 9.2 mg/dl Total Bilirubin 0.4 mg/dl Direct Bilirubin < 0.1 mg/dl Aspartate Amino Transf (AST/SGOT) 15 U/L Alanine Aminotransferase (ALT/SGPT) 17 U/L Alkaline Phosphatase 52 U/L Total Protein 7.7 gm/dl Albumin 4.4 gm/dl Lipase 110 U/L Human Chorionic Gonadotropin, Qual NEG Problem List Medical Problems: (1) Renal colic Status: Acute (2) Right distal ureteral calculus Status: Acute Past History kidney stones, urinary tract infection Past Surgical History: other (ear surgery) Family History Patient reports no known family medical history. Stones with mother and aunt, the majority passed. Social History Lives in [facility] on family vacation. Smoking: non-smoker Alcohol: no current use Marital status: single Occupation status: student Allergies Coded Allergies: No Known Allergies (Unverified , 07/28/17) Medications Home Medications: Home Meds and Scripts Medications Dose Route/Sig Max Daily Dose Days Date Category Zofran Odt (Ondansetron HCl) 4 Mg Tab 4 Mg SL Q6H 07/27/17 Rx Flomax (Tamsulosin Hcl) 0.4 Mg Cap 0.4 Mg PO DAILY 7 07/27/17 Rx Naprosyn (Naproxen) 500 Mg Tab 500 Mg PO BID 10 07/27/17 Rx Roxicodone Ir (Oxycodone HCl) 5 Mg Tab 1-2 Tab PO Q6H PRN 07/27/17 Rx Advil (Ibuprofen) 200 Mg Tab 200-600 Mg PO Q4H PRN 07/27/17 Reported Trazodone (Trazodone HCl) 50 Mg Tab 50 Mg PO HS 07/27/17 Reported Inpatient Medications: Current Inpatient Medications Medications (Trade) Dose Ordered Sig/Agustin Route Start Time Stop Time Status Last Admin Dose Admin Tamsulosin HCl (Flomax Cap) 0.4 mg DAILY PO 07/29/17 09:00 08/28/17 08:59 Trazodone HCl (Desyrel Tab) 50 mg HS PO 07/28/17 21:00 08/27/17 20:59 Dextrose/Sodium Chloride 1,000 ml @ 100 mls/hr Q10H IV 07/28/17 15:00 07/29/17 10:59 07/28/17 15:01 100 MLS/HR Acetaminophen (Tylenol Tab) 650 mg Q4H PRN PO 07/28/17 13:15 08/27/17 13:14 Al Hydrox/Mg Hydrox/Simethicone (Maalox Max Susp) 15 ml Q4H PRN PO 07/28/17 13:15 08/27/17 13:14 Magnesium Hydroxide (Milk Of Magnesia Susp) 30 ml Q6H PRN PO 07/28/17 13:15 08/27/17 13:14 Polyethylene (Miralax Powder Packet) 17 gm DAILY PRN PO 07/28/17 13:15 08/27/17 13:14 Ondansetron HCl (Zofran Inj) 4 mg Q6H PRN IV 07/28/17 13:15 08/27/17 13:14 07/28/17 13:43 4 MG Hydromorphone HCl (Dilaudid Inj) 0.5 mg Q3H PRN IV 07/28/17 13:15 08/11/17 13:14 07/28/17 13:43 0.5 MG Miscellaneous (Iv Fluids Completed) 1 ea PRN PRN N/A 07/28/17 14:15 07/28/18 14:14 Review of Systems Review of Systems Constitutional: No fever, No chills Eyes: No blurred vision, No double vision, No eye pain Neurological: No dizzy, No seizures Endocrine: + tired/sluggish Gastrointestinal: + abdominal pain, + nausea, + vomiting Cardiovascular: No angina, No irregular heartbeat Respiratory: No wheezing, No coughing up blood Skin: No boils, No dry skin Musculoskeletal: + back pain Blood / Lymphatic: No bruise easily, No swollen glands Ears / Nose / Throat: No hearing loss, No sinus Psychologic / Mental: No trouble remembering, No difficulty sleeping Female : + see HPI, + kidney stones Physical Exam Vital Signs: Vital Signs Past 12 Hours Date Time Temp Pulse Resp B/P (MAP) Pulse Ox O2 Delivery O2 Flow Rate FiO2 07/28/17 15:19 36.9 85 16 103/52 (69) 96 Room Air 07/28/17 14:27 36.9 92 18 125/70 100 Room Air 07/28/17 14:26 36.9 106 16 125/70 (88) 100 Room Air 07/28/17 13:46 86 18 105/65 98 Room Air 07/28/17 12:31 104 07/28/17 12:25 37.0 92 18 119/73 98 Room Air 07/28/17 10:43 36.8 103 18 128/78 97 Room Air Physical Exam: General Appearance: WD/WN, + mild distress ENT: normal ENT inspection Neck: supple, no adenopathy Respiratory/Chest: no respiratory distress, no accessory muscle use Cardiovascular: no JVD Extremities: non-tender Neurologic/Psychiatric: alert, oriented x 3 Skin: normal color Lymphatic: no adenopathy Assessment & Plan Assessment & Plan A/P 26 yo female with R distal 4 mm stone, intractable colic. Findings reviewed. With her stone location and size it is not unlikely to pass. Part of her difficulties result from the logistics of her distance from home. She is offered intervention today vs. a trial of passage. She would likely to try to pass the stone for now. Will provide dinner, NPO after midnight, KUB in AM. Consider intervention tomorrow if she remains in distress. Otherwise, if pain controlled, could consider DC on oral pain meds and antiemetics with follow -up closer to home. Thank you for allowing us to participate in this patient's care, will follow with you.
[2017-07-28] MEDS ORDERED: OXYCODONE/ACETAMINOPHEN 5-325 TAB PO PRN (16:30)
[2017-07-28] MEDS: OXYCODONE/ACETAMINOPHEN 5-325 TAB PO PRN ×2 (18:10→22:57)
[2017-07-28] MEDS: TRAZODONE HCL 50 MG TAB PO SCH (20:56)
[2017-07-28] MEDS: DOCUSATE SODIUM 100 MG CAP PO SCH (20:56)
[2017-07-28 23:14] VITALS: BP 104/63; PULSE 74; TEMP 36.7; O2SAT 96
[2017-07-29] VITALS (7 sets, daily range): BP systolic 86–106; BP diastolic 44–64; PULSE 54–83; TEMP 36.7–36.9; O2SAT 95–97
[2017-07-29] MEDS ORDERED: CIPROFLOXACIN / D5W 400 MG IV SCH (06:00)
[2017-07-29 07:34] LABS: HEMATOCRIT 31.3 % (37-47); HEMOGLOBIN 10.1 g/dL (12.0-16.0); MEAN CELL VOLUME 93.7 fL (80-100); MEAN CORPUSCULAR HEMOGLOBIN 30.2 pg (25-34); MEAN CORPUSCULAR HGB CONC 32.3 g/dl (32-36); MEAN PLATELET VOLUME 10.5 fL (7.4-10.4); PLATELET COUNT 129 K/uL (130-400); RED CELL DISTRIBUTION WIDTH CV 13.6 % (11.5-14.5); RED CELL DISTRIBUTION WIDTH SD 46.5 fL (36.4-46.3); WHITE BLOOD COUNT 7.73 K/uL (4.8-10.8)
[2017-07-29 08:09] LABS: CALCIUM 7.9 mg/dl (8.5-10.1); CREATININE 0.64 mg/dl (0.60-1.20); POTASSIUM 3.6 mmol/L (3.5-5.1)
[2017-07-29] MEDS: DOCUSATE SODIUM 100 MG CAP PO SCH ×2 (09:00→20:37)
--- NOTE | 2017-07-29 09:02 | DIAGNOSTIC IMAGING REPORT ---
KUB CLINICAL HISTORY: 26 years-old Female presenting with R ureteral stone. TECHNIQUE: Single supine view of the abdomen was obtained. COMPARISON: CT from 07/27/2017 and plain radiograph from 07/28/2017. FINDINGS: Nonobstructive bowel gas pattern. Moderate stool burden throughout the colon. No gross pneumoperitoneum. Allowing for bowel gas and stool, unchanged position of the distal right ureteral calculus. No radiographically apparent renal calculi. Osseous structures normal. IMPRESSION: 1. Allowing for moderate stool burden, no change in position of the distal right ureteral calculus. Electronically signed by: Derrell Best M.D. 07/29/2017 9:00 AM Dictated Date/Time: 07/29/2017 8:59 AM
[2017-07-29] MEDS: ONDANSETRON INJ 2 MG/ML 2 ML VIAL IV PRN (09:16)
[2017-07-29] MEDS: TAMSULOSIN HCL 0.4 MG CAP PO SCH (09:50)
[2017-07-29] MEDS ORDERED: KETOROLAC TROMETHAMINE 15 MG/ML VIAL IV PRN (11:15)
[2017-07-29] MEDS: SODIUM CHLORIDE 0.9% 1000ML 1,000 ML IV SCH ×3 (11:36→21:29)
--- NOTE | 2017-07-29 12:31 | Progress Note ---
Subjective Date of Service: Jul 29, 2017. Subjective Pt evaluation today including: conversation w/ patient, conversation w/ family , physical exam, chart review, lab review, review of inpatient medication list Pain: Improved since last night PO Intake: NPO per orders Voiding: no voiding problems 26 yo female with a R distal ureteral stone and colic, NPO per orders. She notes she tolerated dinner last night and after worsening pain her colic has improved somewhat this AM. However her KUB this AM suggests unmoved stone and she has passed no stone material. Her aunt and mother, both stone formers, are present today. She has required no recent pain meds. Past notes and imaging reviewed. Problem List Medical Problems: (1) Renal colic Status: Acute (2) Right distal ureteral calculus Status: Acute Review of Systems Constitutional: No fever, No chills Eyes: No worsening of vision ENT: No hearing loss Respiratory: No sputum, No wheezing Cardiac: No chest pain Abdomen: + pain, No nausea, No vomiting Female : + see HPI Neurologic: No memory loss, No paralysis Psychiatric: No depression symptoms Endo: No excessive urination Skin: No new/changing skin lesions Objective Vital Signs Date Time Temp Pulse Resp B/P (MAP) Pulse Ox O2 Delivery O2 Flow Rate FiO2 07/29/17 07:45 Room Air 07/29/17 07:08 36.7 77 17 102/64 (77) 97 Room Air 07/28/17 23:45 Room Air 07/28/17 23:14 36.7 74 14 104/63 (77) 96 Room Air 07/28/17 15:22 Room Air 07/28/17 15:19 36.9 85 16 103/52 (69) 96 Room Air 07/28/17 14:27 36.9 92 18 125/70 100 Room Air 07/28/17 14:26 36.9 106 16 125/70 (88) 100 Room Air 07/28/17 13:46 86 18 105/65 98 Room Air 07/28/17 12:31 104 Physical Exam General Appearance: WD/WN, no apparent distress Eyes: normal inspection ENT: normal ENT inspection, hearing grossly normal Neck: supple, no adenopathy Respiratory/Chest: no respiratory distress, no accessory muscle use Cardiovascular: no JVD Abdomen: non tender, soft Extremities: non-tender Neurologic/Psychiatric: alert, oriented x 3 Skin: normal color Laboratory Results Last 24 Hours Test 07/29/17 07:19 White Blood Count 7.73 K/uL Red Blood Count 3.34 M/uL Hemoglobin 10.1 g/dL Hematocrit 31.3 % Mean Corpuscular Volume 93.7 fL Mean Corpuscular Hemoglobin 30.2 pg Mean Corpuscular Hemoglobin Concent 32.3 g/dl RDW Standard Deviation 46.5 fL RDW Coefficient of Variation 13.6 % Platelet Count 129 K/uL Mean Platelet Volume 10.5 fL Sodium Level 140 mmol/L Potassium Level 3.6 mmol/L Chloride Level 110 mmol/L Carbon Dioxide Level 26 mmol/L Anion Gap 4.0 mmol/L Blood Urea Nitrogen 9 mg/dl Creatinine 0.64 mg/dl Est Creatinine Clear Calc Drug Dose 109.2 ml/min Estimated GFR () 141.7 Estimated GFR (Non- 122.3 BUN/Creatinine Ratio 14.8 Random Glucose 94 mg/dl Calcium Level 7.9 mg/dl Magnesium Level 2.0 mg/dl Assessment and Plan A/P 26 yo female with improved colic, R distal ureteral stone. Findings reviewed with patient and family. It is unclear if her stone has indeed passed - KUB suggests it hasn't, but there is some stool present. Seen her symptomatic improvement she is offered discharge with a trial of MET. If her stone persists she could be treated closer to home and of course if intractable colic resumes she could return to the ER and be treated here. The alternative is to proceed to the OR as planned for ureteroscopy and removal of her stone, laser litho and stent if it persists, which is not unlikely. After some consideration patient reports she would prefer to proceed to the OR due to anxiety over the possibility of return of colic. Consent obtained, risks and benefits reviewed. Will leave string on stent so she can remove it herself in 5 days if she cannot find a urologist in that time frame. Patient and family vocalize understanding of the treatment plan.
[2017-07-29] MEDS ORDERED: HYDROmorphone INJ 1 MG/ML SYR IV PRN (12:45)
[2017-07-29] MEDS ORDERED: ONDANSETRON INJ 2 MG/ML 2 ML VIAL IV PRN (12:45)
[2017-07-29] MEDS ORDERED: EpHEDrine SULFATE INJ 50 MG/ML AMP IV PRN (12:45)
[2017-07-29] MEDS ORDERED: ATROPINE SULFATE 0.1 MG/ML 5ML SYR IV PRN (12:45)
--- NOTE | 2017-07-29 13:02 | Progress Note ---
Subjective Date of Service: Jul 29, 2017. Subjective pt has improvement of symptoms, but KUB suggests stone is still present, pt wants this to be over with and has agreed to go to OR Problem List Medical Problems: (1) Renal colic Status: Acute (2) Right distal ureteral calculus Status: Acute Review of Systems Respiratory: No cough, No shortness of breath Cardiac: No chest pain, No edema Abdomen: No pain, No nausea, No vomiting, No diarrhea Musculoskeletal: No joint pain, No muscle pain Objective Vital Signs Date Time Temp Pulse Resp B/P (MAP) Pulse Ox O2 Delivery O2 Flow Rate FiO2 07/29/17 07:45 Room Air 07/29/17 07:08 36.7 77 17 102/64 (77) 97 Room Air 07/28/17 23:45 Room Air 07/28/17 23:14 36.7 74 14 104/63 (77) 96 Room Air 07/28/17 15:22 Room Air 07/28/17 15:19 36.9 85 16 103/52 (69) 96 Room Air 07/28/17 14:27 36.9 92 18 125/70 100 Room Air 07/28/17 14:26 36.9 106 16 125/70 (88) 100 Room Air 07/28/17 13:46 86 18 105/65 98 Room Air Physical Exam General Appearance: WD/WN, no apparent distress Respiratory/Chest: chest non-tender, lungs clear, normal breath sounds Cardiovascular: regular rate, rhythm, no murmur Abdomen: normal bowel sounds, non tender, soft Extremities: no pedal edema, no calf tenderness Laboratory Results Last 24 Hours Test 07/29/17 07:19 White Blood Count 7.73 K/uL Red Blood Count 3.34 M/uL Hemoglobin 10.1 g/dL Hematocrit 31.3 % Mean Corpuscular Volume 93.7 fL Mean Corpuscular Hemoglobin 30.2 pg Mean Corpuscular Hemoglobin Concent 32.3 g/dl RDW Standard Deviation 46.5 fL RDW Coefficient of Variation 13.6 % Platelet Count 129 K/uL Mean Platelet Volume 10.5 fL Sodium Level 140 mmol/L Potassium Level 3.6 mmol/L Chloride Level 110 mmol/L Carbon Dioxide Level 26 mmol/L Anion Gap 4.0 mmol/L Blood Urea Nitrogen 9 mg/dl Creatinine 0.64 mg/dl Est Creatinine Clear Calc Drug Dose 109.2 ml/min Estimated GFR () 141.7 Estimated GFR (Non- 122.3 BUN/Creatinine Ratio 14.8 Random Glucose 94 mg/dl Calcium Level 7.9 mg/dl Magnesium Level 2.0 mg/dl Assessment and Plan 26 y/o F without significant medical history with renal colic and stone suggestes at the ureterovesical junction with moderate hydronephrosis. no production of stone after hydration and pain control will go to the OR 07/29 IVF, Flomax, antiemetics and parenteral pain contol
[2017-07-29] MEDS ORDERED: OXYC1TAB3 PO (13:11)
[2017-07-29] MEDS ORDERED: ONDA4TAB10 SL (13:11)
--- NOTE | 2017-07-29 13:12 | Discharge Instructions ---
Discharge Instructions Date of Service Jul 29, 2017. Admission Reason for Admission: Hydronephrosis Due To Obstruction Of Ureter Discharge Discharge Diagnosis / Problem: renal colic, s/p cystoscopy and stent Discharge Goals Goal(s): Diagnostic testing, Therapeutic intervention Activity Recommendations Activity Limitations: as noted below Lifting Limitations: no more than 25 pounds, gradually increase as tolerated Exercise/Sports Limitations: rest today, gradually increase as tolerated May Resume Sexual Activity: when tolerated (after stent removal) Shower/Bathe: no limitations Driving or Machine Use: resume 1 day after discharge . Instructions / Follow-Up Instructions / Follow-Up Contact a urologist at home in [facility] for follow-up of stone disease. OK to remove stent in 5-7 days if not able to be seen by urologist in the meanwhile - untape string and pull until entire stent comes out. If stent becomes dislodged, simply remove. Call [phone] for forwarding records or with any questions in the postoperative period. Blood in urine and urinary pressure and frequency expected - use Pyridium as needed for these symptoms. Current Hospital Diet Patient's current hospital diet: Regular Diet Discharge Diet Recommended Diet: Regular Diet (good fluid intake) Procedures Procedures Performed: Cystoscopy, right ureteroscopy with stone extraction, placement of stent with string. Pending Studies Studies pending at discharge: yes List of pending studies: urine culture, stone analysis Medical Emergencies . Who to Call and When: Medical Emergencies: If at any time you feel your situation is an emergency, please call 911 immediately. . Non-Emergent Contact Non-Emergency issues call your: Primary Care Provider, Urologist Call Non-Emergent contact if: temperature is above 101, your pain is not controlled, your pain is worsening, your pain is unusual for you, you have any medication questions . . "Provider Documentation" section prepared by Patricio Schafer MD - 1. Avoid excessive amounts of caffeinated beverages (dark sodas, coffee, tea) as this can contribute to stone formation. 2. Drink plenty of fluids (water, gatorade, lemonade) daily to keep hydration optimal and avoid stone formation. 3. Return to [facility] or any other hospital if - * you develop fever over 100.5 degrees * your pain is not controlled * you have vomiting or diarrhea * any other concerns 4. For prevention/treatment of constipation - take [id number] miralax once-twice daily. . VTE Core Measure Inpt VTE Proph given/why not?: SCD's
[2017-07-29] MEDS ORDERED: MIDAZOLAM HCL 1 MG/ML 2ML VIAL ONE (13:22)
[2017-07-29] MEDS ORDERED: FENTANYL CITRATE INJ 50 MCG/1 ML 2 ML VIAL ONE ×2 (13:22→15:07)
[2017-07-29] MEDS ORDERED: SCOPOLAMINE 1.5 MG TDSY TD ONE (14:02)
[2017-07-29] MEDS ORDERED: PHEN-775 PO (14:12)
[2017-07-29] MEDS ORDERED: CIPR-255 PO (14:12)
[2017-07-29] MEDS ORDERED: CONRAY 30% 150ML BOTTLE ONE (14:31)
[2017-07-29] MEDS ORDERED: LIDOCAINE HCL 2% 2 ML VIAL (20MG/ML) ONE (14:33)
[2017-07-29] MEDS ORDERED: PROPOFOL IV EMULSION 10 MG/ML 20 ML VIAL IV ONE (14:33)
[2017-07-29] MEDS ORDERED: DEXAMETHASONE SOD INJ 4 MG/ML VIAL ONE (14:33)
[2017-07-29] MEDS ORDERED: ONDANSETRON INJ 2 MG/ML 2 ML VIAL ONE (14:33)
[2017-07-29] MEDS ORDERED: PHENYLEPHRINE 100MCG/ML 5ML SYR ONE (14:47)
--- NOTE | 2017-07-29 14:58 | DIAGNOSTIC IMAGING REPORT ---
RETROGRADE INCLUDES KUB CLINICAL HISTORY: 26 years-old Female presenting with STENT PLACEMENT. TECHNIQUE: 6 fluoroscopic spot image(s) obtained as part of an intraoperative procedure. COMPARISON: Plain radiographs from 07/29/2017. FINDINGS/IMPRESSION: Interval cystoscopy with opacification of the right ureter. Subsequently a guidewire was passed into the ureter and a right ureteral stent placed. Please see surgical report for further details. Fluoroscopy dosage (mGy): 4.91. Fluoroscopy time: 50 seconds. Number of fluoroscopic spot images: 6. Electronically signed by: Derrell Best M.D. 07/29/2017 2:57 PM Dictated Date/Time: 07/29/2017 2:56 PM
--- NOTE | 2017-07-29 15:04 | [facility] Post Operative Brief Note ---
Immediate Operative Summary Operative Date Jul 29, 2017. Pre-Operative Diagnosis Right distal ureteral stone with intractable colic Post-Operative Diagnosis same as preop Procedure(s) Performed Cystoscopy, right retrograde pyelography, right semirigid ureteroscopy with basket stone extraction, placement of stent with string. Surgeon Dr. Bassem Woods Printmaker Surgeon(s) none Estimated Blood Loss 5 ml Findings Small stone impacted with edematous ureter removed with basket, good position of stent with string, no ureteral injury. Specimens A: Right distal ureteral stone for analysis Drains 6 fr 24 loop stent with string Anesthesia GALMA Complication(s) None Disposition Recovery Room / PACU
[2017-07-29] MEDS: FENTANYL CITRATE INJ 50 MCG/1 ML 2 ML VIAL IV PRN ×3 (15:12→15:35)
[2017-07-29] MEDS ORDERED: PHENAZOPYRIDINE HCL 200 MG TAB PO PRN (15:15)
--- NOTE | 2017-07-29 15:31 | OPERATIVE REPORT ---
DATE OF OPERATION: 07/29/2017 PREOPERATIVE DIAGNOSIS: Right distal ureteral stone with intractable renal colic. POSTOPERATIVE DIAGNOSIS: Same. PROCEDURES: Cystoscopy, right retrograde pyelography, right semirigid ureteroscopy with basket stone extraction and ureteral stent placement. SURGEON: Dr. Bassem Woods. TAG MACHINE OPERATOR: None. ANESTHESIA: General anesthesia with laryngeal mask. COMPLICATIONS: None. ESTIMATED BLOOD LOSS: Minimal. FINDINGS: Small stone impacted with an edematous right distal ureter removed with basket, good position of stent with string in place, no ureteral injury appreciated. SPECIMENS SENT TO PATHOLOGY: Right distal ureteral stone for chemical analysis. DRAINS LEFT IN PLACE: Include a 6-[place] 24 loop stent with a string in the right hand side. COMPLICATIONS: None. BRIEF HISTORY: Ms. Walker is a pleasant 26-year-old female who I have seen acutely on the occasion of a somewhat ruined family vacation due to acute onset of right renal colic from a small right distal ureteral stone. She was seen in consultation yesterday with attempted stone passage overnight. Unfortunately, this was not successful with a stone remaining within the ureter on KUB today. The patient's mother and aunt both are whom also stone formers present in her room today. After discussion of risks and benefits of various forms of intervention, especially considering the logistics of her travel back to [facility] where she resides, she has decided upon acute endoscopic intervention with ureteroscopy and stone extraction as well as ureteral stent. Please see urology consultation and progress notes for further details. Intravenous ciprofloxacin is provided for antibiotic coverage and SCDs are used for DVT prophylaxis. DESCRIPTION OF PROCEDURE: The patient was properly identified and brought into the operative suite after identification of appropriate consent on the chart, general anesthesia with laryngeal mask was initiated and the patient was prepped and draped in standard fashion for this procedure. integration software developer-out procedure was followed. A 22-[place] rigid cystoscope was passed into the bladder under direct visualization and bladder was surveyed in its entirety demonstrating no intravesical lesions, papillary masses, or calculi. Right-sided ureteral orifice was noted to be somewhat edematous with the left side effluxing clear, yellow urine. Both ureteral orifices were in the normal anatomic position. Right-sided orifice was cannulated with an open-ended catheter and gentle retrograde pyelography was performed using Conray. This demonstrated a small filling defect within the distal ureter with mild to moderate ureteral fullness and hydronephrosis above this level. A sensor tip wire was advanced up to the level of the right renal pelvis and kept until the end of the case as a safety wire. Bladder was drained and cystoscope was removed. Semirigid ureteroscope was inserted into the bladder and over a second working sensor wire was able to be advanced into the right distal ureter without need for dilation. Stone was encountered within a centimeter of the ureteral orifice. This was noted to be relatively small and dilation of the passage of the semirigid ureteroscope allowed for adequate aperture for simple stone basketing and removal. A 0 tip nitinol basket was passed through the ureteroscope and the stone was grasped and removed from the patient to be sent for chemical analysis. Ureteroscope was readvanced up to the level of the proximal ureter without significant difficulties or resistance with no additional stone fragments being appreciated. Complete exit ureteroscopy was performed demonstrating no ureteral tears, injuries or residual stones. Again, mild to moderate edema of the distal ureter, likely due to and contributing to the patient's stone impaction was appreciated. After this was complete, the cystoscope was backloaded over the safety wire and a 6-[place] 24 cm loop stent was advanced up to the level of the right renal pelvis. Strings were left intact so that the patient can remove this as an outpatient herself if she is not able to establish with a urologist within a short order on returning home. These were taped to the right inner thigh using Steri-Strips and benzoin. Bladder was drained and cystoscope was removed, anesthesia was reversed. The patient was transferred to the ICU for recovery, seeing the weekend hours. FOLLOWUP CARE: The patient will be discharged home after her recovery via the floor. Prescription for ciprofloxacin and Pyridium is added to the patient's Zofran and pain medication. Postoperative instructions are reviewed with the patient's family and typed in the chart as is our contact information should she need assistance in coordinating future care. The patient is instructed to contact our service should she note any fevers, chills, nausea, vomiting or other significant difficulties in the postoperative period. I attest to the content of the Intraoperative Record and any orders documented therein. Any exceptions are noted below. SUE
[2017-07-29] MEDS: HYDROmorphone INJ 0.5 MG/0.5 ML SYR IV PRN (16:23)
--- NOTE | 2017-07-29 16:47 | Anesthesiology Progress Note ---
Anesthesia Post Op Note Date & Time Jul 29, 2017 at 16:47 Vital Signs Pain Intensity: 2 Vital Signs Past 12 Hours Date Time Temp Pulse Resp B/P (MAP) Pulse Ox O2 Delivery O2 Flow Rate FiO2 07/29/17 16:27 36.7 71 18 103/64 (77) 96 Room Air 07/29/17 16:00 96 Room Air 07/29/17 16:00 Room Air 07/29/17 15:40 36.5 63 16 101/66 99 Room Air 07/29/17 15:30 60 16 104/64 97 Room Air 07/29/17 15:20 62 16 105/62 99 Room Air 07/29/17 15:10 68 16 98/63 99 Oxymask 4 07/29/17 15:00 36.6 70 16 97/63 98 Oxymask 4 07/29/17 07:45 Room Air 07/29/17 07:08 36.7 77 17 102/64 (77) 97 Room Air Notes Mental Status: alert / awake / arousable, participated in evaluation Pt Amnestic to Procedure: Yes Nausea / Vomiting: adequately controlled Pain: adequately controlled Airway Patency, RR, SpO2: stable & adequate BP & HR: stable & adequate Hydration State: stable & adequate Anesthetic Complications: no major complications apparent
[2017-07-29] MEDS: OXYCODONE/ACETAMINOPHEN 5-325 TAB PO PRN ×2 (18:29→23:37)
[2017-07-29] MEDS: TRAZODONE HCL 50 MG TAB PO SCH (20:37)
[2017-07-30] MEDS: SODIUM CHLORIDE 0.9% 1000ML 1,000 ML IV SCH ×2 (02:18→09:36)
[2017-07-30 03:55] VITALS: BP 95/57; PULSE 65; TEMP 36.8; O2SAT 97
[2017-07-30] MEDS ORDERED: CIPROFLOXACIN 400MG / 200ML D5W IV ONE (06:00)
[2017-07-30 07:19] VITALS: BP 94/55; PULSE 56; TEMP 36.7; O2SAT 97
[2017-07-30] MEDS: TAMSULOSIN HCL 0.4 MG CAP PO SCH (09:38)
[2017-07-30] MEDS: DOCUSATE SODIUM 100 MG CAP PO SCH (09:38)
[2017-07-30 09:43] VITALS: BP 101/64
[2017-07-30] MEDS ORDERED: MRLP17X PO (09:57)
[2017-07-30] MEDS: OXYCODONE/ACETAMINOPHEN 5-325 TAB PO PRN (10:01)
--- NOTE | 2017-07-30 10:01 | Discharge Summary ---
Discharge Summary Date of Service Jul 30, 2017. Discharge Summary Admission Date: Jul 28, 2017 at 13:05 Discharge Date: Jul 30, 2017 Discharge Disposition: Home Principal Diagnosis: right-sided kidney stone s/p basket retrieval with stent deployment Problems/Secondary Diagnoses: constipation Procedures: Cystoscopy, right retrograde pyelography, right semirigid ureteroscopy with basket stone extraction and ureteral stent placement - Dr. Bassem Woods CT abd/pelvis (07/27/17 - done prior to this hospitalization): IMPRESSION: 1. There is a 4 mm obstructing calculus at the right vesicoureteral junction. This causes mild to moderate right hydroureteronephrosis. 2. No additional renal calculi are clearly identified on this contrast-enhanced examination. 3. Trace free fluid in the cul-de-sac is likely within physiologic limits. Consultations: urology - Dr. Bassem Woods Medication Reconciliation New Medications: Ciprofloxacin Hcl (Cipro) 500 Mg Tab 500 MG PO BID, #6 TAB Phenazopyridine Hcl (Pyridium) 200 Mg Tab 200 MG PO TID PRN for Bladder pain, #20 TAB Polyethylene (Miralax) 17 Gm Pow 17 GM PO qd-bid PRN for Constipation, #1 BTL 0 Refills Continued Medications: Naproxen (Naprosyn) 500 Mg Tab 500 MG PO BID for 10 Days, #20 TAB Ondasetron Odt (Zofran Odt) 4 Mg Tab 4 MG SL Q6H for Nausea, #6 TAB (This prescription has been renewed) Oxycodone Ir (Roxicodone Ir) 5 Mg Tab 1-2 TAB PO Q6H PRN for Severe Pain, #20 TAB (This prescription has been renewed) Tamsulosin Hcl (Flomax) 0.4 Mg Cap 0.4 MG PO DAILY for 7 Days, #7 CAP Trazodone Hcl (Trazodone) 50 Mg Tab 50 MG PO HS, TAB Discontinued Medications: Ibuprofen (Advil) 200 Mg Tab 200-600 MG PO Q4H PRN for Pain, TAB Discharge Exam Physical Exam: General Appearance: WD/WN, no apparent distress ENT: pharynx normal Neck: no JVD Respiratory/Chest: lungs clear, no respiratory distress, no accessory muscle use Cardiovascular: regular rate, rhythm, no gallop, normal peripheral pulses, + systolic murmur (1-2/6 TABITHA LLSB) Abdomen / GI: normal bowel sounds, soft, no organomegaly, + tenderness ( minimal right flank discomfort; minimal right-sided abdominal discomfort with deep palpation) Extremities: no pedal edema Neurologic/Psychiatric: alert, oriented x 3 Hospital Course HISTORY OF PRESENT ILLNESS: 26 y/o female without significant medical history. Presented to the ER one day prior with right flank pain radiating into the groin. A CT pelvis revealed a 4mm calculus at the ureterovesical junction with moderate hydronephrosis. She returns due to worsening pain. The patient denies fevers or rigors. She is nauseous and had one episode of vomiting the prior evening. She has avoided PO intake today. HOSPITAL COURSE: The patient was initially admitted for pain control, IV fluids, and conservative management of her distal right-sided ureteral stone. On the AM of 07/29/17 the patient requested surgical intervention due to ongoing pain. The patient was seen in consult by Dr. Bassem Woods, urology, and on 07/29/17 underwent cystoscopy, right retrograde pyelography, right semirigid ureteroscopy with basket stone extraction and ureteral stent placement on the right. Urine culture during this admission was negative. On 07/30/17 the patient was eating/drinking without difficulty. She reported mild stent pain only. She was asked to follow-up with urology upon return to [facility] where she resides. She will need stent retrieval within 1 week. At discharge she was provided with oral narcotics, pyridium to be used PRN, and a short course of cipro. She was counseled to take miralax [id number] once-twice daily for prevention/treatment of constipation. 07/28/17 11:00 Red Blood Count 3.97, Mean Corpuscular Volume 92.4, Mean Corpuscular Hemoglobin 30.2, Mean Corpuscular Hemoglobin Concent 32.7, Mean Platelet Volume 10.8, Neutrophils (%) (Auto) 88.5, Lymphocytes (%) (Auto) 6.2, Monocytes (%) (Auto) 4.8, Eosinophils (%) (Auto) 0.0, Basophils (%) (Auto) 0.1, Neutrophils # (Auto) 12.50, Lymphocytes # (Auto) 0.87, Monocytes # (Auto) 0.68, Eosinophils # (Auto) 0.00, Basophils # (Auto) 0.02 07/29/17 07:19 07/28/17 11:00 07/29/17 07:19 Test 07/28/17 11:00 07/29/17 07:19 White Blood Count 14.12 K/uL (4.8-10.8) Red Blood Count 3.97 M/uL (4.2-5.4) 3.34 M/uL (4.2-5.4) Hemoglobin 12.0 g/dL (12.0-16.0) Hematocrit 36.7 % (37-47) Mean Corpuscular Volume 92.4 fL (80-100) 93.7 fL (80-100) Mean Corpuscular Hemoglobin 30.2 pg (25-34) 30.2 pg (25-34) Mean Corpuscular Hemoglobin Concent 32.7 g/dl (32-36) 32.3 g/dl (32-36) Platelet Count 186 K/uL (130-400) Mean Platelet Volume 10.8 fL (7.4-10.4) 10.5 fL (7.4-10.4) Neutrophils (%) (Auto) 88.5 % Lymphocytes (%) (Auto) 6.2 % Monocytes (%) (Auto) 4.8 % Eosinophils (%) (Auto) 0.0 % Basophils (%) (Auto) 0.1 % Neutrophils # (Auto) 12.50 K/uL (1.4-6.5) Lymphocytes # (Auto) 0.87 K/uL (1.2-3.4) Monocytes # (Auto) 0.68 K/uL (0.11-0.59) Eosinophils # (Auto) 0.00 K/uL (0-0.5) Basophils # (Auto) 0.02 K/uL (0-0.2) RDW Standard Deviation 44.8 fL (36.4-46.3) 46.5 fL (36.4-46.3) RDW Coefficient of Variation 13.3 % (11.5-14.5) 13.6 % (11.5-14.5) Immature Granulocyte % (Auto) 0.4 % Immature Granulocyte # (Auto) 0.05 K/uL (0.00-0.02) Urine Color YELLOW Urine Appearance CLEAR (CLEAR) Urine pH 6.5 (4.5-7.5) Urine Specific [place] 1.024 (1.000-1.030) Urine Protein NEG (NEG) Urine Glucose (UA) NEG (NEG) Urine Ketones NEG (NEG) Urine Occult Blood TRACE (NEG) Urine Nitrite NEG (NEG) Urine Bilirubin NEG (NEG) Urine Urobilinogen NEG (NEG) Urine Leukocyte Esterase SMALL (NEG) Urine WBC (Auto) 5-10 /hpf (0-5) Urine RBC (Auto) 5-10 /hpf (0-4) Urine Hyaline Casts (Auto) 1-5 /lpf (0-5) Urine Epithelial Cells (Auto) >30 /lpf (0-5) Urine Bacteria (Auto) 1+ (NEG) Urine Renal Epithelial Cells /lpf (0-5) Anion Gap 8.0 mmol/L (3-11) 4.0 mmol/L (3-11) Est Creatinine Clear Calc Drug Dose 76.8 ml/min 109.2 ml/min Estimated GFR () 100.2 141.7 Estimated GFR (Non- 86.5 122.3 BUN/Creatinine Ratio 12.6 (10-20) 14.8 (10-20) Calcium Level 9.2 mg/dl (8.5-10.1) 7.9 mg/dl (8.5-10.1) Total Bilirubin 0.4 mg/dl (0.2-1) Direct Bilirubin < 0.1 mg/dl (0-0.2) Aspartate Amino Transf (AST/SGOT) 15 U/L (15-37) Alanine Aminotransferase (ALT/SGPT) 17 U/L (12-78) Alkaline Phosphatase 52 U/L (45-117) Total Protein 7.7 gm/dl (6.4-8.2) Albumin 4.4 gm/dl (3.4-5.0) Lipase 110 U/L (73-393) Human Chorionic Gonadotropin, Qual NEG (NEG) Magnesium Level 2.0 mg/dl (1.8-2.4) Total Time Spent: Less than 30 minutes This includes examination of the patient, discharge planning, medication reconciliation, and communication with other providers. Discharge Instructions Please refer to the electronic Patient Visit Report (Discharge Instructions) for additional information. Follow-Up within 1 week with urology in [facility] Additional Copies To Bassem Woods MD, Urology
[2017-07-30 10:22] VITALS: BP 101/64; PULSE 56; TEMP 36.7; O2SAT 97
--- NOTE | 2017-07-30 11:09 | Progress Note ---
Subjective Date of Service: Jul 30, 2017. Subjective Pt evaluation today including: conversation w/ patient, conversation w/ family , physical exam, chart review, review of inpatient medication list Pain: Improved PO Intake: Cornel reg diet, no emesis. Voiding: voiding difficulty (some dysuria) 26 yo female POD#1 s/p R uscope, basketing and stent. She was kept overnight for typical symptoms of stent irritation. She notes these have abated somewhat this AM. No new complaints, has a copy of her imaging studies, family in room for DC this AM. Past notes and events reviewed. Problem List Medical Problems: (1) Renal colic Status: Acute (2) Right distal ureteral calculus Status: Acute Review of Systems Constitutional: No fever, No chills Eyes: No worsening of vision ENT: No hearing loss Respiratory: No sputum, No shortness of breath Cardiac: No chest pain Abdomen: + pain, No nausea, No vomiting, No diarrhea Female : + see HPI, + dysuria Neurologic: No memory loss, No paralysis Psychiatric: No depression symptoms Endo: No excessive thirst Skin: No new/changing skin lesions, No color change Objective Vital Signs Date Time Temp Pulse Resp B/P (MAP) Pulse Ox O2 Delivery O2 Flow Rate FiO2 07/30/17 10:22 36.7 56 18 97 Room Air 07/30/17 09:43 101/64 (76) 07/30/17 07:19 36.7 56 18 94/55 (68) 97 Room Air 07/30/17 07:10 Room Air 07/30/17 03:55 36.8 65 14 95/57 (70) 97 Room Air 07/29/17 23:35 Room Air 07/29/17 23:07 36.7 54 14 86/49 (61) 95 Room Air 88/44 (59) 07/29/17 19:09 36.7 76 18 98/58 (71) 97 Room Air 07/29/17 17:59 36.9 83 16 106/64 (78) 97 Room Air 07/29/17 17:06 36.8 66 18 100/63 (75) 95 Room Air 07/29/17 16:27 36.7 71 18 103/64 (77) 96 Room Air 07/29/17 16:00 96 Room Air 07/29/17 16:00 Room Air 07/29/17 15:40 36.5 63 16 101/66 99 Room Air 07/29/17 15:30 60 16 104/64 97 Room Air 07/29/17 15:20 62 16 105/62 99 Room Air 07/29/17 15:10 68 16 98/63 99 Oxymask 4 07/29/17 15:00 36.6 70 16 97/63 98 Oxymask 4 Physical Exam General Appearance: WD/WN, no apparent distress ENT: hearing grossly normal Neck: supple, no adenopathy Respiratory/Chest: no respiratory distress, no accessory muscle use Cardiovascular: no JVD Abdomen: non tender, soft Neurologic/Psychiatric: alert, oriented x 3 Skin: normal color Assessment and Plan A/P 26 yo female POD#1 s/p R uscope, basketing and stent. Expected postop course reviewed. Can remove stent in ~ 1 week ideally - technique reviewed. Intraop findings reviewed. Lemonade therapy discussed. Contact our service with any questions, concerns or assistance with transfer of care, otherwise will see PRN. Thank you for allowing us to participate in this patient's acute care.
== END 2017-07-30 11:30 | disposition home or self-care (01) ==
LOC: C.EDB 10:35 → C.MSW 13:05 → ENRESERV 13:40
PROVIDERS: ADMIT Internal Medicine; ATTEND Internal Medicine
DX: N20.1 Calculus of ureter (principal); N13.2 Hydronephrosis with renal and ureteral calculous obstruction; Z87.440 Personal history of urinary (tract) infections; Z87.442 Personal history of urinary calculi; E78.00 Pure hypercholesterolemia, unspecified; F41.9 Anxiety disorder, unspecified